=== PATIENT | male | born 1935 | race Two or more races ===

== ENCOUNTER 2019-12-03 09:39 | Outpatient (CLI) | payer MEDICARE, MEDICAID ==
[~2019-12-03] VITALS: Ht 152.4 cm; Wt 59.9 kg
[2019-12-03 10:10] VITALS: BP 129/71
[2019-12-03] MEDS ORDERED: NAMENDA5 MG ORAL (10:12)
[2019-12-03] MEDS ORDERED: FLOMAX0.4 MG ORAL (10:12)
[2019-12-03] MEDS ORDERED: ELIQUIS2.5 MG PO (10:12)
[2019-12-03] MEDS ORDERED: COLACE100 MG ORAL (10:12)
--- NOTE | 2019-12-03 15:30 | Consultation ---
DATE OF CONSULTATION: 12/03/2019 CONSULTING PHYSICIAN: Tobin Eason M.D. REFERRING PHYSICIAN: Dr. Castellon. CHIEF COMPLAINT: Rectal bleeding. PAST MEDICAL HISTORY: 1. Prostate cancer. 2. History of DVT on the right arm. PAST SURGICAL HISTORY: Open cholecystectomy. MEDICATIONS: He is on Flomax, Namenda, Eliquis, and Colace. FAMILY HISTORY: Noncontributory. SOCIAL HISTORY: The patient drinks socially. Quit tobacco in 2009. No drugs. ALLERGIES: No known drug allergies. REVIEW OF SYSTEMS: Positive for some weight loss, rectal bleeding, abdominal pain, constipation. PHYSICAL EXAMINATION: VITAL SIGNS: Temperature 97.8, blood pressure is 129/71, pulse 61, respirations 20. HEENT: Normocephalic and atraumatic. Sclerae anicteric. NECK: Supple. No evidence of obvious lymphadenopathy. CARDIOVASCULAR: Regular rate and rhythm. Plus S1 and S2. LUNGS: Decreased breath sounds bilaterally based on the supine exam. ABDOMEN: Soft, nontender. No rebound. No guarding. No peritoneal sign. EXTREMITIES: No cyanosis. No clubbing. No edema. ASSESSMENT: This is an 84-year-old male with rectal bleeding, constipation, on Eliquis. PLAN: Apparently, the patient has been on Eliquis for about 9 months. Recommend family to discuss with Hematology or who ever manages his DVT to see if the Eliquis can be stopped, especially in the setting that the patient has rectal bleeding. In terms of constipation, we are going to start the patient on low-dose Linzess 72 once daily. Given the rectal bleeding and no prior history of endoscopy and colonoscopy, we will schedule him for next week to get both procedures done. I want to thank Dr. Castellon for this kind referral. Toibn Eason M.D. DR: GARY JOB#: [id number] CC: Dr. Castellon
== END 2019-12-03 11:39 | disposition home or self-care (01) ==
LOC: PAN 09:39
DX: K62.5 Hemorrhage of anus and rectum (principal); Z86.718 Personal history of other venous thrombosis and embolism; Z85.46 Personal history of malignant neoplasm of prostate; Z90.49 Acquired absence of other specified parts of digestive tract; K59.00 Constipation, unspecified; R10.9 Unspecified abdominal pain; Z79.01 Long term (current) use of anticoagulants
CPT/HCPCS: G0463

== ENCOUNTER 2019-12-11 10:29 | Day surgery (SDC) | payer MEDICARE, MEDICAID ==
[2019-12-11] VITALS (9 sets, daily range): BP systolic 133–147; BP diastolic 62–80
[~2019-12-11] VITALS: Ht 154.9 cm; Wt 59.9 kg
[~2019-12-11 10:29] MED LIST: COLACE100 MG ORAL; ELIQUIS2.5 MG PO; FLOMAX0.4 MG ORAL; NAMENDA5 MG ORAL
--- NOTE | 2019-12-11 11:42 | Pre-Procedure Note/Attestation ---
Pre-Procedure Note/Attestation Complete Prior to Procedure Planned Procedure: not applicable Procedure Narrative: esophagogastroduodenoscopy and colonoscopy Indications for Procedure Pre-Operative Diagnosis: screening colon, rectal bleed Attestation I attest that I discussed the nature of the procedure; its benefits; risks and complications; and alternatives (and the risks and benefits of such alternatives ), prior to the procedure, with the patient (or the patient's legal industrial relations representative). I attest that, if there was a reasonable possibility of needing a blood transfusion, the patient (or the patient's legal industrial relations representative) was given the [facility] standardized written summary, pursuant to the [place] Blood Safety Act ([place] Health and Safety Code # 1645, as amended). I attest that I re-evaluated the patient just prior to the surgery and that there has been no change in the patient's H&P, except as documented below: Tobin Eason MD Dec 11, 2019 11:42
--- NOTE | 2019-12-11 11:42 | Short Stay Surgery H&P ---
History of Present Illness History of Present Illness Chief Complaint see office note HPI Chris Marti is a 84 year old male who was admitted on for Rectal Bleed Patient History Allergies: Coded Allergies: No Known Allergies (Unverified , 12/03/19) Medication History Scheduled Docusate Sodium* (Colace*), 100 MG ORAL TWICE A DAY, (Reported) Memantine Hcl* (Namenda*), Unknown Dose ORAL DAILY, (Reported) Tamsulosin HCl (Flomax), 0.4 MG ORAL DAILY, (Reported) Miscellaneous Medications Apixaban (Eliquis), 2.5 MG PO, (Reported) Physical Exam Vital Signs Last Vital Signs Date Time Temp Pulse Resp B/P (MAP) Pulse Ox O2 Delivery O2 Flow Rate FiO2 12/11/19 11:21 97.8 55 18 133/67 99 Room Air Plan Attestation Are the patient's medical conditions optimized for surgery? Tobin Eason MD Dec 11, 2019 11:42
[2019-12-11] MEDS ORDERED: Propofol 200mg/20ml IV ONE (12:00)
[2019-12-11] MEDS ORDERED: LR 1000ml ONE (12:00)
[2019-12-11] MEDS ORDERED: fentaNYL 100 mcg/2 mL IV ONE (12:00)
[2019-12-11] MEDS ORDERED: AMLODIPINE BESY10 MG ORAL (12:05)
[2019-12-11] MEDS ORDERED: LOSARTAN POTASS50 MG ORAL (12:06)
--- NOTE | 2019-12-11 12:06 | Endoscopy Procedure Note ---
Endoscopy Procedure Note General Indication for Procedure: screening colon, GERD, rectal bleed Procedures Performed: EGD, colonoscopy Operative Findings/Diagnosis: gastritis, hemorhoids Specimen: yes Pt Tolerated Procedure Well: Yes Estimated Blood Loss: none Anesthesia Anesthesiologist: nadia Anesthesia: MAC Inserted Devices Implant(s) used?: No Quality Quality of Bowel Preparation: Good Did scope reach the cecum?: Yes Was there any complications?: No GI Core Measures 50 yrs or older w/o bx or poly: No 10yrs. F/U recommended: Yes If not recommended, why?: Above average risk 18 years or older w/prev. colo: No Tobin Eason MD Dec 11, 2019 12:06
--- NOTE | 2019-12-11 12:19 | Anethesia Preoperative Eval ---
Anesthesia Pre-op PMH/ROS General Date of Evaluation: Dec 11, 2019 Time of Evaluation: 11:42 Anesthesiologist: Lin ASA Score: ASA 2 Mallampati Score Class I : Soft palate, uvula, fauces, pillars visible Class II: Soft palate, uvula, fauces visible Class III: Soft palate, base of uvula visible Class IV: Only hard plate visible Mallampati Classification: Class II Surgeon: Yumi Diagnosis: Rectal bleed Surgical Procedure: Egd Colonoscopy Anesthesia History: none Family History: no anesthesia problems Allergies: Coded Allergies: No Known Allergies (Unverified , 12/03/19) Medications: see eMAR Patient NPO?: Yes Past Medical History Cardiovascular: Reports: HTN; Denies: CAD, [place], valve dz, arrhythmia, other Pulmonary: Denies: asthma, COPD, AUDREY, other Gastrointestinal/Genitourinary: Reports: GERD, other - h/o prostate Neurologic/Psychiatric: Denies: dementia, CVA, depression/anxiety, TIA, other Endocrine: Denies: DM, hypothyroidism, steroids, other HEENT: Denies: cataract (L), cataract (R), glaucoma, [place] (L), [place] (R), other Hematology/Immune: Reports: anemia - mild; Denies: DVT, bleeding disorder, other Musculoskeletal/Integumentary: Reports: OA; Denies: RA, DJD, DDD, edema, other PMH Narrative: as above PSxH Narrative: Laparotomy, Prostate Anesthesia Pre-op Phys. Exam Physician Exam Last Vital Signs Date Time Temp Pulse Resp B/P (MAP) Pulse Ox O2 Delivery O2 Flow Rate FiO2 12/11/19 11:21 97.8 55 18 133/67 99 Room Air Constitutional: NAD Neurologic: CN 2-12 intact Cardiovascular: RRR, no M/R/G Respiratory: CTA Gastrointestinal: S/NT/ND Airway Exam Mallampati Score: Class II MO: limited Neck: stiff ROM: limited Teeth: missing Dentures: no upper, no lower Anesthesia Pre-op A/P Studies Pre-op Studies: EKG - NSR Risk Assessment & Plan Assessment: ASA 2 Plan: MAC Status Change Before Surgery: Herbert Zayas MD Dec 11, 2019 12:19
--- NOTE | 2019-12-11 12:31 | Immediate Post-Op Evaluation ---
Immediate Post-Op Evalulation Immediate Post-Op Evalulation Procedure: EGD Colonoscopy Date of Evaluation: Dec 11, 2019 Time of Evaluation: 12:30 IV Fluids: 400 Blood Products: none Estimated Blood Loss: none Urinary Output: none Blood Pressure Systolic: 144 Blood Pressure Diastolic: 67 Pulse Rate: 60 Respiratory Rate: 20 O2 Sat by Pulse Oximetry: 99 Temperature (Fahrenheit): 97.6 Pain Score (1-10): 1 Nausea: No Vomiting: No Complications none Patient Status: awake, patent, none Hydration Status: adequate Herbert Ceballos MD Dec 11, 2019 12:31
--- NOTE | 2019-12-11 13:28 | 48 Hour Post Anesthesia Eval ---
Post Anesthesia Evaluation Procedure: EGD Colonoscopy Date of Evaluation: Dec 11, 2019 Time of Evaluation: 13:27 Blood Pressure Systolic: 146 0: 72 Pulse Rate: 58 Respiratory Rate: 18 Temperature (Fahrenheit): 97.6 O2 Sat by Pulse Oximetry: 98 Airway: patent Nausea: No Vomiting: No Pain Intensity: 1 Hydration Status: adequate Cardiopulmonary Status: stable Mental Status/LOC: patient returned to baseline Follow-up Care/Observations: n/a Post-Anesthesia Complications: none Follow-up care needed: ready to discharge Herbert Ceballos MD Dec 11, 2019 13:28
--- NOTE | 2019-12-11 16:30 | Procedure Note ---
DATE OF PROCEDURE: 12/11/2019 SURGEON: Tobin Eason M.D. PROCEDURE: Upper endoscopy with biopsy and colonoscopy with biopsy. ANESTHESIA: Per Dr. Ceballos. INSTRUMENT: Olympus adult flexible upper endoscope and colonoscope. INDICATION: GI bleeding. REASON FOR PROCEDURE: The procedure, risks, benefits, and possible consequences, including hemorrhage, aspiration, perforation and infection, and alternative treatments, were explained to the patient/legal guardian by Dr. Tobin Eason and the patient/legal guardian understood and accepted these risks. PROCEDURE IN DETAIL: After informed consent was obtained and the patient was adequately sedated, Olympus upper endoscope was advanced from mouth into the second portion of the duodenum and retroflexion was performed in the stomach. The patient has evidence of diffuse gastritis, atrophic looking. Biopsy from antrum was obtained to rule out H. pylori infection. Otherwise the rest of the upper endoscopic examination looked grossly within normal limits. At this time, the upper endoscope was retrieved and the patient was turned over for colonoscopy. First, rectal exam was performed, which was positive for internal hemorrhoids. Then, the scope was advanced from the rectum into the cecum documented by appendix orifice, ileocecal valve, and right upper quadrant palpation. Quality of prep was very good. The patient has scattered diverticulosis, both in the left and right colon. In the rectum, the patient has multiple deep ulcerations with some sparing normal-looking mucosa in between. I am not sure exactly the pathology of these ulcers. One possibility is ischemic, but the thing is that there are ulcers are on both side of the rectal wall. Other possibility would be infectious, vascular pathology, unlikely to be malignant, unlikely to be inflammatory bowel disease. Multiple biopsy from this ulceration was obtained. Retroflexion of rectum showed evidence of internal hemorrhoids. SUMMARY OF FINDINGS: 1. Atrophic gastritis, status post biopsy. 2. Diverticulosis. 3. Internal hemorrhoids. 4. Multiple rectal ulcerations, status post biopsy. RECOMMENDATIONS: Follow up biopsy results and treat accordingly. I want to thank . Tobin Eason M.D. DR: DORIAN JOB#: [id number] CC:
== END 2019-12-11 13:30 | disposition home or self-care (01) ==
LOC: SUR 10:29
DX: K62.5 Hemorrhage of anus and rectum (principal); K57.90 Diverticulosis of intestine, part unspecified, without perforation or abscess without bleeding; K29.40 Chronic atrophic gastritis without bleeding; K62.6 Ulcer of anus and rectum; K64.8 Other hemorrhoids; I10 Essential (primary) hypertension; K21.9 Gastro-esophageal reflux disease without esophagitis; D64.9 Anemia, unspecified; M19.90 Unspecified osteoarthritis, unspecified site
CPT/HCPCS: 43239; 45380; J2704; J3010; J7120; 94003; 94150

== ENCOUNTER 2019-12-24 09:14 | Outpatient (CLI) | payer MEDICARE, MEDICAID ==
[~2019-12-24 09:14] MED LIST changes: +AMLODIPINE BESY10 MG ORAL; +LOSARTAN POTASS50 MG ORAL
[2019-12-24 09:41] VITALS: BP 144/63
[2019-12-24] MEDS ORDERED: ELIQUIS2.5 MG PO (09:45)
--- NOTE | 2019-12-24 09:54 | General Progress Note ---
Assessment/Plan Assessment/Plan: GERD constipation rectal ulcer diverticulosis hemorrhoids s/p EGd and colonoscopy: SUMMARY OF FINDINGS: 1. Atrophic gastritis, status post biopsy. 2. Diverticulosis. 3. Internal hemorrhoids. 4. Multiple rectal ulcerations, status post biopsy. path reviewed will hold HP treatment for now add anusol HC cont linzess 72 RTC 3 months Subjective ROS Limited/Unobtainable: Yes Allergies: Coded Allergies: No Known Allergies (Unverified , 12/03/19) Objective Last 24 Hour Vital Signs Date Time Temp Pulse Resp B/P (MAP) Pulse Ox O2 Delivery O2 Flow Rate FiO2 12/24/19 09:41 98.2 52 16 144/63 (90) 95 General Appearance: alert EENT: normal ENT inspection Neck: supple Cardiovascular: normal rate Respiratory/Chest: decreased breath sounds Abdomen: normal bowel sounds, non tender, soft Extremities: non-tender Tobin Eason MD Dec 24, 2019 09:54
== END 2019-12-24 15:50 | disposition home or self-care (01) ==
LOC: PAN 09:14
DX: K21.9 Gastro-esophageal reflux disease without esophagitis (principal); K59.00 Constipation, unspecified; K62.6 Ulcer of anus and rectum; K57.90 Diverticulosis of intestine, part unspecified, without perforation or abscess without bleeding; K64.9 Unspecified hemorrhoids; K29.40 Chronic atrophic gastritis without bleeding
CPT/HCPCS: 99212